=== PATIENT | female | born 1955 | race Caucasian/White ===

== ENCOUNTER → 2017-04-08 | Day surgery (SDC) | payer MEDICARE, OTHER ==
[~2017-04-08] VITALS: Ht 170.2 cm; Wt 80.5 kg
[~2017-04-08] MED LIST: *HYDROmorphone PF 1 MG VIAL PERIprocedural Use ONLY ONE; *RESP: ALBUTEROL 2.5 MG/3 ML NEB (PRN) PERIprocedural Use ONLY NEB ONE; *morphine SULFATE 8 MG/ML PERIprocedure ONLY ONE; ACETAMINOPHEN 1000 MG/100 ML 100 ML IV ONE; ALBU1AER5 INH; APREPITANT 40 MG CAP ONE; ATEN50TA PO; BACL20TA PO; BUPIVACAINE/EPINEPHRINE 0.25% 50 ML VIAL ONE; CHLORHEXIDINE GLUCONATE 2 % 1 PACK (2 CLOTHS) TOPICAL PRN; CHLORHEXIDINE GLUCONATE 4% SOLN 120 ML BTL TOPICAL SCH; CLAR10CA3 PO; CLINDAMYCIN PHOS 600 MG/4 ML VIAL ONE; CYCL1TAB29 PO; DEXAMETHASONE SOD PHOS 4 MG/ML VIAL IV ONE; DO NOT ADM ANY ANTICOAGULANT DRUGS PRN; DOCU100C PO; ENDO7.5T10 PO; FAMOTIDINE 20 MG/2 ML VIAL ONE; FLUT1INH INH; FURO20TA PO; GABA600T PO; GENTAMICIN SULFATE 80 MG/2 ML VIAL ONE; GLYCOPYRROLATE 1 MG/5 ML SYRINGE IV PUSH ONE; INSULIN HUMAN REGULAR 1,000 UNITS/10 ML VIAL SQ PRN; LACT10SO PO; LACTATED RINGER'S 1000 ML IV PRN; LEVO112T2 PO; LEVO125T4 PO; LIDOCAINE HCL 1% PF 5 ML AMPULE OTHER ONE; LORA-474 PO; META48.53 PO; METOPROLOL TARTRATE 25 MG TAB PO PRN; MIDAZOLAM HCL 2 MG/2 ML VIAL IV ONE; MORPHINE SULFATE 4 MG/ML INJ IV PUSH PRN; NEOSTIGMINE 3 MG/3 ML SYR IV ONE; OMEP20TA PO; ONDANSETRON HCL 4 MG/2 ML VIAL IV PUSH ONE; ONDANSETRON HCL 4 MG/2 ML VIAL IV PUSH PRN; ONETAB26 PO; PERC5TAB12 PO; POVIDONE IODINE 5% (ANTISEPSIS KIT) 4 APPLICATIONS EACH NARE PRN; PROPOFOL 200 MG/20 ML AMP IV ONE; REFR1DRO EACH EYE; ROCURONIUM INJ 50 MG/5 ML SYRINGE IV PUSH ONE; ROSU10 PO; SODIUM CHLORID 0.9% 500 ML IV PRN; SODIUM CHLORIDE 0.9% FLUSH 10 ML FLUSH IV FLUSH PRN; SODIUM CHLORIDE 0.9% FLUSH 10 ML FLUSH IV FLUSH SCH; SOMA350T PO; SUGAMMADEX SODIUM 200 MG/2 ML VIAL IV PUSH ONE; TIZA2TAB PO; VANCOMYCIN 1000 MG/NS 250 ML (for <70 kg) IV SCH; ZANA6CAP PO; ZOFR4TAB PO; ceFAZolin 2 GM PREMIX 50 ML IV SCH; ePHEDrine/NS 25 MG/5 ML SYR IV ONE; oxyCODONE/ACETAMINOPHEN 7.5 MG/325 MG TAB PO PRN
--- NOTE | 2017-04-08 08:30 | HHI.FF ---
Face to Face Verification Diagnosis: (1) Fracture of clavicle with nonunion Occupational Therapy Right UE Weight Bearing: Non WB Right UE Range of Motion: Pendular Nursing Dressing Changes: Daily dressing change, Xeroform, Coverderm/Primapore I have seen patient Renée Razo on 04/08/17. My clinical findings support the need for the requested home health care services because: Ltd mobility - disease progression I certify that my clinical findings support that this patient is homebound because: Post-op weakness Jackson Thomas Apr 08, 2017 08:30
--- NOTE | 2017-04-08 10:59 | PD.OP ---
cc: Pool Conde MD Operative Report Date of Surgery: Apr 08, 2017 Preoperative Diagnosis: Right clavicle fracture nonunion Postoperative Diagnosis: Procedure: Open reduction internal fixation right clavicle fracture nonunion Anesthesia: Gen. Surgeon: Pool Conde Official Greeter(s): FRANCISCO J Muro PA-C The surgical procedure was assisted by my physician assistant inventory manager. My P.A. presence was necessary throughout this case for the manipulation and positioning of the surgical extremity. My P.A. was assisting me throughout the duration of this procedure. The skill set of a physician assistant inventory manager was medically necessary to complete this procedure. During the surgical case the surgical first assistant was working at the back table and the physician assistant inventory manager was directly assisting me. Operation and Findings: Patient was seen and evaluated preoperatively. Patient was found to have a displaced clavicle fracture. Fracture occurred approximately 2 months ago. The patient had significant displacement of fracture with minimal evidence of healing. She continued to have significant pain.. The risks and benefits of surgical and nonsurgical options were discussed in detail and informed consent was obtained for surgery. Patient was brought to the operating room and placed on or table. IV sedation and GETA were administered by anesthesiologist. Antibiotics were given prior to incision. Operative arm and shoulder were prepped with alcohol followed by Hibiclens and draped usual sterile fashion. Timeout procedure was performed. Procedure began with a 4 inch incision over the anterior clavicle. Subcutaneous tissue was dissected with Bovie. The fracture was now visualized. Soft tissue was retracted. Fracture was cleaned with curettes. There was significant fibrous tissue throughout the fracture. TPS bur was used to debride the edges of the bone. The fracture was gently mobilized.. Attention was now turned to reduction. Gentle traction was applied and fracture tenaculums were used to reduce the fracture. Fracture was manipulated to achieve excellent reduction. Multiplanar fluoroscopy confirmed well aligned fracture. K wires were used to hold provisional fixation. A ITS clavicle plate was selected. Plate was provisionally held in place K wires. 3.5 cortical screws were used to compress plate to bone. Fluoroscopy confirmed appropriate plate placement and fracture reduction. Multiple screws were placed on each side of the fracture. All Screws were predrilled and premeasured for appropriate length. Care was taken to avoid injury to neurovascular structures. Final fluoroscopy revealed well aligned fracture with well-placed hardware. Wound was thoroughly irrigated. 2.5 cc of Biosphere bone graft putty was placed around the nonunion site. Fascia was closed with #1 Vicryl, subcutaneous tissues closed with 3-0 Vicryl, and skin was closed with juan c. Sterile dressings were applied. Patient was placed into a sling. Patient was awakened and transferred to recovery in stable condition. Needle and sponge counts were correct. Pool Conde MD Apr 08, 2017 10:58
[2017-04-08 15:00] VITALS: BP 136/87; PULSE 84; RESP 20; TEMP 97.7; O2SAT 98
--- NOTE | 2017-04-08 16:40 | EKG ---
Date Performed: 04/08/2017 Time Performed: 07:01:48 PTAGE: 61 years EKG: Sinus rhythm Compared to prior tracing no significant change NORMAL ECG PREVIOUS TRACING : 12/04/2007 13.44 DOCTOR: Oumou Cheng Interpretating Date/Time 04/08/2017 16:37:31
--- NOTE | 2017-04-09 10:14 | RADRPT ---
EXAM DATE/TIME: 04/08/2017 10:41 [facility] COMPARISON: No previous studies available for comparison. INDICATIONS : ORIF right clavicle. MEDICAL HISTORY : None. SURGICAL HISTORY : None. ENCOUNTER: Initial ACUITY: 1 day PAIN SCORE: Non-responsive. LOCATION: Right clavicle. FINDINGS: Two view examination of the right clavicle demonstrates sideplate an osseous screw securing what appe ars to be a right clavicular diaphyseal fracture. Fracture fragments are in adequate anatomic alignme nt. A.c. joint is preserved. Glenohumeral articulation is intact.. CONCLUSION: Successful open reduction and internal fixation of right clavicular fracture. Gomez Stahl MD on April 09, 2017 at 10:11 Board Certified Radiologist. This report was verified electronically.
--- NOTE | 2017-04-16 09:01 | PD.ORT.PN ---
Subjective Subjective Remarks stable in pacu Objective Objective Remarks RUE: dressings clean and dry. intac.t +sling Assessment & Plan Assessment and Plan 1) Right clavicle fx s/p orif -stable -DC home -nwb -f/u with Jackson Hernandez Apr 16, 2017 09:01
== END | disposition home or self-care (01) ==
LOC: HSDC 05:47
PROVIDERS: ATTEND Orthopaedic Surgery Orthopaedic Trauma
DX: S42.021K Displaced fracture of shaft of right clavicle, subsequent encounter for fracture with nonunion (principal); E78.5 Hyperlipidemia, unspecified; E03.9 Hypothyroidism, unspecified; G35 Multiple sclerosis; G80.9 Cerebral palsy, unspecified; F41.9 Anxiety disorder, unspecified; Z79.899 Other long term (current) drug therapy; Z98.1 Arthrodesis status; W07.XXXD Fall from chair, subsequent encounter
CPT/HCPCS: 00450; 23515; 73000; 76000; 93005; 94664; C1713; J0131; J0690; J1100; J1170; J1580; J2250; J2270; J2405; J2710; J3010; J7120; J7613; J8501